=== PATIENT | female | born 1990 | race Caucasian/White ===

== ENCOUNTER 2016-04-26 15:56 | Outpatient (CLI) | payer OTHER ==
[2016-04-26 16:24] VITALS: BP 127/73
--- NOTE | 2016-04-27 09:24 | Ultrasound Report ---
BIOPHYSICAL PROFILE: TECHNIQUE: Transabdominal ultrasound with Doppler interrogation. 2 - breathing movements 2 - movements 2 - posture and tone 2 - Qualitative amniotic fluid volume 8 - TOTAL SCORE OF POSSIBLE 8 Heart Rate (bpm) 144
--- NOTE | 2016-04-27 09:24 | Ultrasound Report ---
OB LIMITED: TECHNIQUE: Transabdominal ultrasound with Doppler interrogation. Gestation: brar Position: cephalic Amniotic Fluid: WNL (7-24 cm) ARIAN = 15.1 cm Heart Rate: 144 BPM
== END 2016-04-26 17:45 | disposition home or self-care (01) ==
LOC: TRG 15:56
PROVIDERS: ATTEND Specialist
DX: Z34.90 Encounter for supervision of normal pregnancy, unspecified, unspecified trimester (principal); Z3A.00 Weeks of gestation of pregnancy not specified
CPT/HCPCS: 76815; 76819

== ENCOUNTER 2016-04-29 20:33 | Inpatient (IN) | payer OTHER ==
[2016-04-30] MEDS ORDERED: LACTATED RINGERS 1,000 ML ONE (00:08)
[2016-04-30] MEDS ORDERED: STADOL IV PRN (00:44)
[2016-04-30] MEDS ORDERED: PITOCin/NS 20 UNIT/1000ML DRIP 1,000 ML IV SCH ×2 (01:00→23:03)
[2016-04-30] MEDS ORDERED: LACTATED RINGERS 1,000 ML IV SCH ×2 (01:00→02:00)
[2016-04-30 01:19] LABS: Basophils % (Auto) 0.2 % (0.0-1.8); Eosinophils % (Auto) 0.8 % (0.0-4.3); Hematocrit 35.1 % (30.3-42.9); Hemoglobin 11.6 gm/dl (10.1-14.3); Mean Corpuscular HGB Conc 33 % (30-34); Mean Corpuscular Hemoglobin 30 pg (28-32); Mean Corpuscular Volume 90 fl (79-97); Red Blood Count 3.91 M/mm3 (3.65-5.03); White Blood Count 10.4 K/mm3 (4.5-11.0)
[2016-04-30 01:22] LABS: Platelet Count 232 K/mm3 (140-440)
[2016-04-30] MEDS ORDERED: BRETHINE IVP PRN (01:43)
[2016-04-30] MEDS ORDERED: XYLOCAINE 2% INFILTRATI ONE (01:43)
[2016-04-30] MEDS ORDERED: NARCAN 0.4 MG/1 ML IV PRN ×2 (01:43→23:03)
[2016-04-30] MEDS ORDERED: ZOFRAN IV PRN ×2 (01:43→23:03)
[2016-04-30] MEDS ORDERED: SUBLIMAZE IV PRN (01:43)
[2016-04-30] MEDS ORDERED: MINERAL OIL PO PRN (01:43)
[2016-04-30] MEDS ORDERED: BRETHINE SUB-Q PRN (01:43)
[2016-04-30] MEDS ORDERED: ePHEDrine SULFATE IV PRN (01:43)
[2016-04-30] MEDS: PITOCin/NS 30 UNIT/500ML 500 ML IV SCH ×9 (03:00→14:32)
--- NOTE | 2016-04-30 10:24 | History and Physical Report ---
History of Present Illness Date of examination: 04/30/16 Date of admission: 04/29/16 20:33 Chief complaint: pt presents at 41 weeks for induction on 04/29/16. pt was tian spontaneously so low dose pitocin was started. Pt is currently on 20 of pitocin. Past History Past Medical History: no pertinent history Past Surgical History: no surgical history Family/Genetic History: diabetes Social history: no significant social history - Obstetrical History Expected Date of Delivery: 04/22/16 Actual Gestation: 41 Week(s) 1 Day(s) : 1 Number of Living Children: 0 Medications and Allergies Allergies Allergy/AdvReac Type Severity Reaction Status Date / Time No Known Allergies Allergy Verified 04/30/16 00:19 Active Meds: Active Medications Butorphanol Tartrate (Stadol) 2 mg IV Q2H PRN PRN Reason: Labor Pain Fentanyl (Sublimaze) 100 mcg IV Q2H PRN PRN Reason: Labor Pain Oxytocin/Sodium Chloride (Pitocin/Ns 30 Unit/500ml) 500 mls @ 2 mls/hr IV TITR ROSY; 2 MILLIUNITS/MIN PRN Reason: Protocol Last Admin: 04/30/16 08:42 Dose: 20 mls/hr Lactated Ringer's (Lactated Ringers) 1,000 mls @ 125 mls/hr IV DIRECT ROSY Last Admin: 04/30/16 08:07 Dose: 125 mls/hr Oxytocin/Sodium Chloride (Pitocin/Ns 20 Unit/1000ml Drip) 1,000 mls @ 125 mls/ hr IV DIRECT ROSY Mineral Oil (Mineral Oil) 30 ml PO QHS PRN PRN Reason: Constipation Naloxone HCl (Narcan 0.4 Mg/1 Ml) 0.1 mg IV Q2MIN PRN PRN Reason: Res Rate </= 8 or 02 SAT < 92% Ondansetron HCl (Zofran) 4 mg IV Q8H PRN PRN Reason: Nausea And Vomiting Review of Systems All systems: negative Gastrointestinal: abdominal pain - Vital Signs Vital signs: Vital Signs BP 149/101 04/26/16 17:41 Temp Pulse Resp BP Pulse Ox 98.1 F 56 L 18 101/54 98 04/30/16 07:19 04/30/16 09:38 04/30/16 07:19 04/30/16 09:38 04/30/16 07:19 - Physical Exam Breasts: Positive: deferred Cardiovascular: Regular rate, Normal S1, Normal S2 Abdomen: Positive: normal appearance, soft, normal bowel sounds. Negative: distention, tenderness Vulva: both: normal Vagina: Positive: normal moisture. Negative: discharge Cervix: Negative: lesion, discharge Uterus: Positive: normal size, normal contour Adnexa: both: normal Anus/Rectum: Positive: normal perianal skin, heme negative. Negative: rectal mass, hemorrhoids Extremities: Deep Tendon Reflex Grade: Normal +2 - Obstetrical FHR: category 1 Uterine Contraction Monitor Mode: External Cervical Dilatation: 0 Cervical Effacement Percentage: 50 station: -3 Uterine Contraction Pattern: Irregular Uterine Tone Measurement Phase: Resting Uterine Contraction Intensity: Mild Results Result Diagrams: 04/29/16 23:00 All other labs normal. Assessment and Plan iup at 41 1/7 weeks, induction for post dates Plan- pitocin induction.
--- NOTE | 2016-04-30 17:32 | Event Note ---
Date: 04/30/16 pt cervix remains unchanged, sono done today shows efw of 4158 grams. pt given the option of another attempt at induction or primary c/s for presumed macrosomia. Pt has opted for primary c/s . Will prepare. Discussed with the patient the risks and benefits of surgery. Consents signed.
[2016-04-30] MEDS ORDERED: REGLAN IV SCH (17:34)
[2016-04-30] MEDS ORDERED: PEPCID IV SCH (17:34)
[2016-04-30] MEDS ORDERED: EMLA TP PRN (17:34)
[2016-04-30] MEDS ORDERED: BICITRA PO SCH (17:34)
--- NOTE | 2016-04-30 17:55 | Anesthesia Day of Surgery ---
Anesthesia Day of Surgery - Day of Surgery Patient Examined: Yes Patient H&P Reviewed: Yes Patient is NPO: Yes
--- NOTE | 2016-04-30 17:55 | Anesthesia Consultation ---
Anesthesia Consult and Med Hx Date of service: 04/30/16 - Airway Anesthetic Teeth Evaluation: Good ROM Head & Neck: Adequate Mental/Hyoid Distance: Adequate Mallampati Class: Class II Intubation Access Assessment: Probably Good - Pulmonary Exam CTA: Yes - Cardiac Exam Cardiac Exam: RRR - Pre-Operative Health Status ASA Pre-Surgery Classification: ASA2 Proposed Anesthetic Plan: Epidural, Spinal - Pulmonary Hx Asthma: No COPD: No Hx Pneumonia: No - Cardiovascular System Hx Hypertension: No - Central Nervous System Hx Seizures: No Hx Psychiatric Problems: No - Endocrine Hx Renal Disease: No Hx End Stage Renal Disease: No Hx Hypothyroidism: No Hx Hyperthyroidism: No - Hematic Hx Anemia: No Hx Sickle Cell Disease: No - Other Systems Hx Alcohol Use: No
[2016-04-30] MEDS ORDERED: ANCEF/STERILE WATER 2 GM/20 ML 20 ML IV NR (18:00)
[2016-04-30] MEDS ORDERED: PITOCin/NS 20 UNIT/1000ML DRIP 1,000 ML IV NR (18:00)
[2016-04-30] MEDS ORDERED: MORPHINE ONE (18:29)
[2016-04-30] MEDS ORDERED: WATER FOR IRRIG STERILE IR ONE (19:05)
[2016-04-30] MEDS ORDERED: NACL 0.9% IR ONE (19:05)
[2016-04-30] MEDS ORDERED: ePHEDrine SULFATE ONE (19:11)
[2016-04-30] MEDS ORDERED: ZOFRAN ONE (19:13)
[2016-04-30] MEDS: LACTATED RINGERS 1,000 ML IV NR ×2 (19:20→19:40)
[2016-04-30] MEDS ORDERED: TORADOL ONE (19:40)
[2016-04-30] MEDS: PITOCin/NS 20 UNIT/1000ML DRIP 1,000 ML IV SCH ×2 (19:50→20:32)
--- NOTE | 2016-04-30 19:54 | Procedure Note ---
OB Delivery Note - Delivery Date of Delivery: 04/30/16 Surgeon: SERA WAGNER Estimated blood loss: other (500ml) - Section Preop diagnosis: other (presumed macrosomia) Postop diagnosis: other (CPD) section procedure: section, primary low transverse Disposition: PACU Complications: none - Infant A at 1 minute: 8 at 5 minutes: 9 Infant Gender: Male (wt 7-10, normal tubes and ovaries)
--- NOTE | 2016-04-30 20:01 | Operative Report ---
Operative Report Operative Report: Preoperative diagnoses- Intrauterine at 41 weeks, presumed Macrosomia - efw 4100gm by sono Postoperative diagnoses- same- Infant not engaged- ? Cephelo-pelvic disproportion Procedure- Primary low segment transverse section Surgeon- Dr. Cathryn Lam-Todd Anesthesia- Spinal/epidural Findings- live male wt 7-10, apgars 8 & 9, normal tubes and ovaries Estimated blood loss- 500ml Complications- none Instrument count- Correct Pathology specimens- Placenta-pathology Patient was taken to the OR. Spinal/epidural anesthesia was instituted. Patient was then placed in the dorsolithotomy position and Moore catheter was placed. Patient was then returned to the supine position and prepped and draped in usual sterile fashion. Level of anesthesia was checked and found to be adequate. Pfannenstiel skin incision was made. The incision was extended through the subcutaneous tissues to the fascia. Which was incised transversely using Mayos and pickups with teeth. The fascia was from the underlying muscle using Kochers and Bovie cautery. The rectus muscle was then in the midline. The peritoneum was visualized, grasped with hemostats and opened using the Metzenbaum scissors. Upon entering the peritoneal cavity an elijah retractor was placed appropriately. A curvilinear incision was made with Metzenbaum scissors and a smooth pickup. A bladder flap was developed, a curvilinear incision was made in the lower uterine segment using a scalpel. The uterine cavity was entered bluntly with the surgeon's finger and the incision was enlarged. The Head of the was delivered . The mouth and nose were suctioned and the remainder of the body was delivered . The cord was doubly clamped and cut . was given to the waiting team. The cord blood was obtained. The placenta was then delivered manually. The uterus is cleaned with a moist wet lap tape. The first layer of the uterus is closed with 0 Vicryl running interlocking stitch. The second layer of the uterus was closed with a 0 Vicryl horizontal imbricating stitch. The pelvic gutters were cleaned . Next the adnexa were examined and found to be normal. Next the fascia was closed with 0 Vicryl running suture. Next the subcutaneous tissue was reapproximated with 3-0 Vicryl running suture. The skin was reapproximated with a 4-0 Vicryl subcuticular stitch. Mastisol and Steri-Strips were placed . A pressure dressing was applied. The patient was transferred to recovery room in stable condition.
--- NOTE | 2016-04-30 20:28 | Post Anesthesia Evaluation ---
- Post Anesthesia Evaluation Patient Participated: Yes Airway Patent: Yes Stable Respiratory Function: Yes Nausea/Vomiting: No Temp > 96.8F: Yes Pain Manageable: Yes Adequeate Hydration: Yes Anesthesia Complications: No Block Receding Appropriately: Yes Patient on Ventilator: No
[2016-04-30] MEDS ORDERED: TORADOL IV PRN (23:03)
[2016-04-30] MEDS ORDERED: SODIUM CHLORIDE FLUSH SYRINGE 10 ML IV PRN (23:03)
[2016-04-30] MEDS ORDERED: MORPHINE IV PRN (23:03)
[2016-04-30] MEDS ORDERED: MYLICON PO PRN (23:03)
[2016-04-30] MEDS ORDERED: TUCKS PAD TP PRN (23:03)
[2016-04-30] MEDS ORDERED: LANSINOH TP PRN (23:03)
[2016-04-30] MEDS ORDERED: D5LR 1,000 ML IV SCH (23:03)
[2016-04-30] MEDS ORDERED: MILK OF MAGNESIA PO PRN (23:03)
[2016-05-01] MEDS ORDERED: BENADRYL PO PRN (01:40)
[2016-05-01] MEDS ORDERED: ANCEF/NS 1 GM/50 ML 50 ML IV SCH (02:00)
[2016-05-01] MEDS ORDERED: PERCOCET 5/325 PO PRN (03:00)
[2016-05-01] MEDS: TORADOL IV SCH ×4 (05:59→18:22)
[2016-05-01 06:30] LABS: Hematocrit 29.9 % (30.3-42.9)
[2016-05-01] MEDS: PERCOCET 5/325 PO PRN ×2 (10:06→22:18)
--- NOTE | 2016-05-01 11:57 | Progress Note ---
Assessment and Plan O: VSS AF PP H/H: 02/06.9 A: Stable POD #1 Anemia P: Ambulate in hallway Subjective - Subjective Date of service: 05/01/16 Patient reports: appetite normal, voiding normally, pain well controlled, ambulating normally, no flatus : doing well, bottle feeding Objective - Vital Signs Latest vital signs: Vital Signs Temp Pulse Pulse Resp BP BP Pulse Ox 05/01/16 09:00 98.7 F 87 18 115/59 05/01/16 05:20 98.6 F 84 16 106/75 05/01/16 01:00 98.6 F 73 16 127/52 04/30/16 21:45 97.3 F L 58 L 18 113/56 04/30/16 21:05 97.4 F L 04/30/16 21:00 73 14 115/67 97 04/30/16 20:56 69 19 124/76 98 04/30/16 20:55 61 18 113/52 98 04/30/16 20:50 61 16 113/52 98 04/30/16 20:45 66 12 114/57 97 04/30/16 20:40 63 9 L 114/57 98 04/30/16 20:39 63 12 116/55 98 04/30/16 20:35 66 18 116/55 98 04/30/16 20:30 70 17 118/58 98 04/30/16 20:25 73 13 124/63 98 04/30/16 20:20 77 20 121/66 99 04/30/16 20:15 66 15 113/54 99 04/30/16 20:10 64 17 110/51 98 04/30/16 20:05 67 16 120/62 98 04/30/16 20:00 70 18 114/59 99 04/30/16 19:55 69 17 114/59 99 04/30/16 19:50 97.5 F L 67 18 113/55 98 04/30/16 19:48 75 13 97 04/30/16 14:38 59 L 119/71 04/30/16 14:32 64 124/72 124/72 04/30/16 13:37 71 140/80 04/30/16 12:36 64 128/75 Intake and Output 04/30/16 05/01/16 05/01/16 22:59 06:59 14:59 Intake Total 2100 1290 360 Output Total 300 800 500 Balance 1800 490 -140 Intake: IV 2100 1050 PITOCin/NS 20 UNIT/1000ML 250 DRIP 1,000 ML @ 125 mls/ hr IV TITR NR Rx#: [id number] D5lr 1,000 ml @ 125 mls/ 750 hr IV DIRECT ROSY Rx#: [id number] Ancef/Ns 1 gm/50 ml 50 ml 50 @ 100 mls/hr IV Q8H ROSY Rx#:[id number] Oral 240 360 Output: Urine 300 800 500 Uretheral (Moore) 50 Indwelling Catheter 800 Void 500 Other: Total, Intake Amount 240 360 Total, Output Amount 800 500 # Voids Void 1 Estimated Blood Loss 500 - Exam Breasts: Present: deferred Lungs: Present: Normal air movement Abdomen: Present: normal appearance, soft, tenderness, normal bowel sounds. Absent: distention Uterus: Present: normal, firm, fundal height below umbilicus. Absent: bogginess Extremities: Present: normal Incision: Present: normal, dry, intact, dressed - Labs Labs: Abnormal lab results 05/01/16 Range/Units 05:18 Hgb 10.0 L (10.1-14.3) gm/dl Hct 29.9 L (30.3-42.9) %
[2016-05-01] MEDS: FEOSOL PO SCH (22:18)
[2016-05-01] MEDS: MOTRIN PO PRN (22:18)
[2016-05-02] MEDS: MOTRIN PO PRN ×2 (03:47→09:06)
[2016-05-02] MEDS: PERCOCET 5/325 PO PRN ×2 (03:47→09:05)
[2016-05-02] MEDS: FEOSOL PO SCH (09:05)
--- NOTE | 2016-05-02 10:48 | Progress Note ---
Assessment and Plan POD#2 s/p primary csec macrosomia patient doing well bottle and breast feeding vss CBC stable Hgb 10 boy circumsion desires D/C home today and f/u in 1 week for incicison check Subjective - Subjective Date of service: 05/02/16 Principal diagnosis: POD #2 Patient reports: appetite normal, voiding normally, pain well controlled, ambulating normally : doing well, nursing well, bottle feeding Objective - Vital Signs Latest vital signs: Vital Signs Temp Pulse Resp BP 05/02/16 08:30 98.2 F 80 20 98/64 05/02/16 03:47 18 05/02/16 01:30 98.4 F 67 17 116/54 05/01/16 22:18 18 05/01/16 18:40 99.2 F 81 20 114/64 05/01/16 12:49 98.2 F 73 20 116/54 05/01/16 11:06 18 Intake and Output 05/01/16 05/02/16 05/02/16 22:59 06:59 14:59 Intake Total 360 480 240 Output Total 900 400 0 Balance -540 80 240 Intake: Oral 360 240 Intake, Free Water 480 Output: Urine 900 400 0 Void 900 400 0 Other: Total, Intake Amount 360 240 Total, Output Amount 900 400 0 # Voids Void 1 1 - Exam Breasts: Present: normal Cardiovascular: Present: Regular rate, Normal S1, Normal S2, No murmurs Lungs: Present: Clear to auscultation, Normal air movement Abdomen: Present: normal appearance, soft, normal bowel sounds. Absent: distention, tenderness Vulva: both: normal Uterus: Present: normal, firm, fundal height below umbilicus Extremities: Present: normal Deep Tendon Reflex Grade: Normal +2 Incision: Present: normal, dry, intact
--- NOTE | 2016-05-02 10:54 | Discharge Summary ---
Providers - Providers Date of Admission: 04/29/16 20:33 Date of discharge: 05/02/16 Attending physician: SERA WAGNER Primary care physician: SERA WAGNER Hospitalization Reason for admission: induction of labor Delivery: Procedure: section Episiotomy: none Laceration: none Incision: normal, dry, intact Other procedures: none complications: none Discharge diagnosis: IUP at term delivered Ethel baby: male Condition at discharge: Good Disposition: DISCHARGED TO HOME OR SELFCARE Plan - Discharge Medications Prescriptions: Ferrous Sulfate [Feosol 325 MG tab] 325 mg PO BID #60 tablet Ibuprofen [Motrin 800 MG tab] 800 mg PO Q8HR PRN #30 tablet PRN Reason: Pain oxyCODONE /ACETAMINOPHEN [Percocet 5/325] 1 tab PO Q6HR PRN #30 tablet PRN Reason: Pain - Provider Discharge Summary Additional instructions: [] Smoking cessation referral if applicable(refer to patient education folder for contact #) [] Refer to [facility]'s [facility] Booklet Call your doctor immediately for: * Fever > 100.5 * Heavy vaginal bleeding ( >1 pad per hour) * Severe persistent headache * Shortness of breath * Reddened, hot, painful area to leg or breast * Drainage or odor from incision. * Keep incision clean and dry at all times and follow doctor's instructions regarding bathing/showering
[2016-05-02 13:01] VITALS: BP 129/73
--- NOTE | 2016-05-03 11:46 | Ultrasound Report ---
OB ULTRASOUND: TECHNIQUE: Transabdominal ultrasound with Doppler interrogation. Gestation: brar Position: cephalic Amniotic Fluid: WNL (7-24 cm) ARIAN = 10.6 cm Placenta: fundal Placental Grade: III Heart Rate: 109 BPM Cervical length: obscured cm (Normal > 3 cm) BPD: 10.23 cm = out of range HC: 36.29 cm = out of range AC: 36.03 cm = 40 w 0 d FL: 7.86 cm = 40 w 1 d HC/AC Ratio: 1.01 Cephalic Index: 84.4 Estimated Weight: 4158 grams Clinical age = 41 w 1 d EDC: 04-22-16 US Gest. Age = 40 w 1 d EDC: 04-29-16
== END 2016-05-02 15:15 | disposition home or self-care (01) | DRG 766 ==
LOC: LD 20:33 → APU 04-30 18:43 → OB 04-30 21:25
PROVIDERS: ADMIT Specialist; ATTEND Specialist
PROC: 10D00Z1 Extraction of Products of Conception, Low, Open Approach (ICD-10-PCS; principal; 2016-04-30)
DX: O36.63X0 Maternal care for excessive fetal growth, third trimester, not applicable or unspecified (principal); O33.9 Maternal care for disproportion, unspecified; O48.0 Post-term pregnancy; O90.81 Anemia of the puerperium; D64.9 Anemia, unspecified; Z3A.41 41 weeks gestation of pregnancy; Z37.0 Single live birth; Z83.3 Family history of diabetes mellitus
CPT/HCPCS: 36415; 76816; 85014; 85018; 85025; 86850; 86900; 86901; 88307; A6250; J0690; J1885; J2270; J2405; J2590; J2765; J7120; J7121